=== PATIENT | female | born 1970 | race Caucasian/White ===

== ENCOUNTER → 2016-10-24 | Outpatient (CLI) | payer OTHER ==
--- NOTE | 2016-10-28 06:55 | MM ---
Reason for exam: screening (asymptomatic). Last mammogram was performed 2 years and 2 months ago. History: Family history of breast cancer in paternal aunt at age 50. Physical Findings: A clinical breast exam by your physician is recommended on an annual basis and results should be correlated with mammographic findings. MG Screening Mammo w CAD Bilateral CC and MLO view(s) were taken. Prior study comparison: August 30, 2014, bilateral MG screening mammo w CAD. September 24, 2012, bilateral digital screening mammo w/CAD. The breast tissue is heterogeneously dense. This may lower the sensitivity of mammography. Finding: There are indeterminate calcifications in the lower inner quadrant of the left breast, 5-6cm from the nipple. New finding since August 30, 2014 and September 24, 2012. ASSESSMENT: Incomplete: need additional imaging evaluation, BI-RAD 0 RECOMMENDATION: Special view mammogram of the left breast. [facility] will attempt to contact patient to return for supplemental views.
== END | disposition home or self-care (01) ==
LOC: RADMAMWWP 07:41
PROVIDERS: ATTEND Family Medicine
DX: Z12.31 Encounter for screening mammogram for malignant neoplasm of breast (principal)

== ENCOUNTER → 2016-10-24 | Outpatient (CLI) | payer OTHER ==
--- NOTE | 2016-10-24 09:03 | US ---
EXAMINATION TYPE: US abdomen complete DATE OF EXAM: 10/24/2016 8:07 AM COMPARISON: CT abdomen pelvis September 11, 2009. CLINICAL HISTORY: RLQ Pain R10.31. Cholecystectomy EXAM MEASUREMENTS: Liver Length: 14.5 cm Gallbladder Wall: Surgically absent CBD: 0.7 cm Spleen: 9.4 cm Right Kidney: 11.3 x 3.4 x 4.7 cm Left Kidney: 10.5 x 5.5 x 4.3 cm TECHNOLOGIST IMPRESSION: Pancreas: visualized portions appear wnl, tail obscured by overlying bowel Liver: wnl Gallbladder: Surgically absent CBD: wnl Spleen: wnl Right Kidney: no evidence of hydronephrosis or mass Left Kidney: limited evaluation due to overlying bowel content, no evidence of hydronephrosis Upper IVC: wnl Abd Aorta: wnl The liver is homogenous. The intrahepatic portion of the IVC and proximal abdominal aorta are within normal limits. Gallbladder is surgically absent. Common bile duct is unremarkable. The visualized portions of the pancreas are homogenous. The spleen is unremarkable. Kidneys are symmetric and free of hydronephrosis. No renal lesions are seen on images saved. IMPRESSION: Slightly suboptimal study but no significant finding is seen to account for patient's sym ptoms.
--- NOTE | 2016-10-24 09:15 | US ---
EXAMINATION TYPE: US pelvis complete transvag DATE OF EXAM: 10/24/2016 8:59 AM COMPARISON: CT abdomen and pelvis September 11, 2009. Prior pelvic ultrasound June 08, 2010 CLINICAL HISTORY: RLQ and pelvic Pain R10.31. Ablation 2009 TECHNIQUE: Transvaginal (TV) and Transabdominal (TA) pelvic ultrasound. Date of LMP: unknown EXAM MEASUREMENTS: Uterus: 7.7 x 2.9 x 5.0 cm Endometrial Stripe: 0.4 cm Right Ovary: 2.2 x 1.7 x 1.5 cm Left Ovary: 2.3 x 0.9 x 1.3 cm TECHNOLOGIST IMPRESSION: 1. Uterus: Anteverted, heterogeneous, Nabothian cysts 2. Endometrium: appears wnl 3. Right Ovary: appears wnl, limited evaluation due to overlying bowel 4. Left Ovary: appears wnl, limited evaluation due to overlying bowel 5. Bilateral Adnexa: wnl 6. Posterior cul-de-sac: wnl Uterus is heterogeneous appearance, anteverted in shape, and within normal limits in size. Some nabot hian cysts are scattered throughout the cervix. Endometrium is not suspiciously thickened. No free fl uid is seen in pelvis. Neither ovary is well seen but no suspicious adnexal masses are noted bilaterally. IMPRESSION: No significant finding is seen to account for patient's symptoms of right lower quadrant/ pelvic pain.
== END | disposition home or self-care (01) ==
LOC: RADUSWWP 07:38
PROVIDERS: ATTEND Family Medicine
DX: R10.31 Right lower quadrant pain (principal)
CPT/HCPCS: 76700; 76830; 76856

== ENCOUNTER → 2016-11-01 | Outpatient (CLI) | payer OTHER ==
--- NOTE | 2016-11-01 08:39 | MM ---
Reason for exam: additional evaluation requested from abnormal screening. Last mammogram was performed less than 1 month ago. History: Family history of breast cancer in paternal aunt at age 50. Physical Findings: Nurse did not find any significant physical abnormalities on exam. MG Work Up Mamm w CAD LT CC and MLO view(s) were taken of the left breast. Prior study comparison: October 24, 2016, bilateral MG screening mammo w CAD. August 30, 2014, bilateral MG screening mammo w CAD. Finding: There are grouped/clustered calcifications in the left breast. New finding since October 24, 2016 and August 30, 2014. These results were verbally communicated with the patient and result sheet given to the patient on 11/01/16. ASSESSMENT: Suspicious, BI-RAD 4 RECOMMENDATION: Stereotactic core biopsy of the left breast. Called Dr. Garsia with mammographic findings and has scheduled an appointment for the patient for 12/04/16 at 1:[address] Thomson. Biopsy scheduled for 11/04/16 at 2:20. PRELIMINARY REPORT CALLED AND FAXED TO DR. THOMSON ON 11/01/16 AT 300/TP.
== END | disposition home or self-care (01) ==
LOC: RADMAMWWP 06:58
PROVIDERS: ATTEND Family Medicine
DX: R92.8 Other abnormal and inconclusive findings on diagnostic imaging of breast (principal)

== ENCOUNTER → 2016-11-05 | Day surgery (SDC) | payer OTHER ==
[~2016-11-05] MED LIST: ALPRAZolam 0.25 MG TAB ONE; BACITRACIN OINT 1 EACH PACKET TOPICAL ONE; LIDOCAINE 1% INJ 10MG/ML (20 ML MDV) ONE; SODIUM BICARB 4% 5 ML VIAL (0.48 MEQ/ML) ONE
--- NOTE | 2016-11-05 17:05 | MM ---
EXAMINATION TYPE: MG stereo VAD BX LT DATE OF EXAM: 11/05/2016 3:54 PM COMPARISON: NONE CLINICAL HISTORY: Abnormal breast mammogram with calcifications left breast TECHNIQUE: Stereotactic guided core biopsy of left breast. FINDINGS: The procedure of stereotactic guided core biopsy was explained to the patient. Benefits, alternatives, and risks were discussed. An informed consent was then obtained. The shortness pathway for biopsy was chosen. Shortness pathway was approach. Entire procedure performed by radiologist. A vacuum assisted biopsy gun was used to obtain multiple core samples. The patient tolerated the procedure well without any immediate complication. The patient was kept in the radiology department for short stay after the procedure and then discharged home in stable condition. Targeted calcifications are identified in specimen mammogram. Post biopsy mammogram shows the clip to appear in satisfactory position relative to the targeted area of concern on the preprocedure images. IMPRESSION: SUCCESSFUL, UNCOMPLICATED STEREOTACTIC GUIDED CORE BIOPSY OF AREA OF CONCERN IN THE left BREAST, FULL PATHOLOGY RESULTS TO FOLLOW. Pathology Results: Benign BREAST, LEFT, CORE BIOPSY: FIBROCYSTIC CHANGES INCLUDING CYSTS, FIBROSIS, APOCRINE METAPLASIA, SCLEROSING ADENOSIS, FOCAL MILD USUAL TYPE DUCTAL HYPERPLASIA AND MICROCALCIFICATIONS. Recommendation Follow up mammogram of the left breast in 6 months. MARKO
== END ==
LOC: RADMAMWWP 13:26
PROVIDERS: ATTEND Surgery
DX: N60.12 Diffuse cystic mastopathy of left breast (principal); N60.82 Other benign mammary dysplasias of left breast; N60.22 Fibroadenosis of left breast; N60.92 Unspecified benign mammary dysplasia of left breast; R92.0 Mammographic microcalcification found on diagnostic imaging of breast; R92.8 Other abnormal and inconclusive findings on diagnostic imaging of breast; R92.1 Mammographic calcification found on diagnostic imaging of breast
CPT/HCPCS: 88305; 19081; A4648; J2001

== ENCOUNTER → 2017-06-20 | Outpatient (CLI) | payer OTHER ==
--- NOTE | 2017-06-20 08:53 | MM ---
Reason for exam: follow-up at short interval from prior study. Last mammogram was performed 8 months ago. History: Family history of breast cancer in paternal aunt at age 50. Benign MG stereo VAD BX LT of the left breast, November 05, 2016. Physical Findings: Nurse did not find any significant physical abnormalities on exam. MG Diagnostic Mammo LT w CAD CC and MLO view(s) were taken of the left breast. Prior study comparison: November 01, 2016, left breast MG work up mamm w CAD LT. October 24, 2016, bilateral MG screening mammo w CAD. The breast tissue is heterogeneously dense. This may lower the sensitivity of mammography. Previous mammotome biopsy in the left breast. Previous calcifications removed. No significant new findings when compared with previous films. These results were verbally communicated with the patient and result sheet given to the patient on 06/20/17. ASSESSMENT: Benign, BI-RAD 2 RECOMMENDATION: Return to routine screening mammogram schedule for both breasts. Back on schedule for October 2007.
== END | disposition home or self-care (01) ==
LOC: RADMAMWWP 07:00
PROVIDERS: ATTEND Surgery
DX: R92.8 Other abnormal and inconclusive findings on diagnostic imaging of breast (principal)

== ENCOUNTER 2018-07-27 07:52 | Day surgery (SDC) | payer OTHER ==
[2018-07-23 10:33] VITALS: BMI 23.3
[~2018-07-27 07:52] MED LIST changes: -ALPRAZolam 0.25 MG TAB ONE; -BACITRACIN OINT 1 EACH PACKET TOPICAL ONE; +LACTATED RINGERS 1,000 ML IV SCH; -LIDOCAINE 1% INJ 10MG/ML (20 ML MDV) ONE; -SODIUM BICARB 4% 5 ML VIAL (0.48 MEQ/ML) ONE
[2018-07-27 08:14] VITALS: RESP 16; TEMP 97.4
[2018-07-27 08:16] LABS: Glucose,Whole Blood 91 mg/dL (75-99)
[2018-07-27] MEDS ORDERED: PROPOFOL 10 MG/ML 20 ML VIAL IV ONE (08:16)
--- NOTE | 2018-07-27 09:05 | P.PCN ---
Date of Procedure: 07/27/18 Procedure(s) Performed: Procedure: Total colonoscopy. Preoperative diagnosis: Screening for neoplasia. Postoperative diagnosis: Exam within normal limits. Preparation: HalfLytely prep. Sedation: Was provided by anesthesia. Brief clinical history: The patient is a 48-year-old female who is scheduled for this evaluation was screening for neoplasia age being her risk factor. She knows of no family history of colon cancer. She has no abdominal complaints, bleeding or anemia. She may have had a prior exam several years ago. Procedure: With the patient on her left lateral decubitus position and after informed consent and adequate sedation, the perianal area was inspected and it did not show any fissures or fistulas. There were no masses felt on digital rectal examination. The Olympus CFH 190L video colonoscope was then inserted in the rectum in the usual fashion and advanced to the cecum. The mucosa appeared healthy. No polyps or tumors were seen or any obvious diverticular disease or other pathology. I retroflexed the endoscope in the rectum before the endoscope was withdrawn. The patient tolerated the procedure well. Plan: The patient was reassured. She will follow-up with you as planned and I recommended repeat exam in 10 years.
[2018-07-27 09:33] VITALS: BP 120/82; PULSE 62
== END 2018-07-27 10:12 | disposition home or self-care (01) ==
LOC: ORWHC2ENDO 07:52
DX: Z12.11 Encounter for screening for malignant neoplasm of colon (principal); E11.9 Type 2 diabetes mellitus without complications; M79.7 Fibromyalgia; G89.29 Other chronic pain; K21.9 Gastro-esophageal reflux disease without esophagitis; Z79.84 Long term (current) use of oral hypoglycemic drugs; Z79.891 Long term (current) use of opiate analgesic; Z79.899 Other long term (current) drug therapy; Z88.5 Allergy status to narcotic agent
CPT/HCPCS: 81025; J2704; G0121

== ENCOUNTER → 2020-12-22 | Outpatient (CLI) | payer BC ==
--- NOTE | 2020-12-25 08:58 | MM ---
Reason for exam: screening (asymptomatic). Last mammogram was performed 1 year and 10 months ago. History: Family history of breast cancer in paternal aunt at age 50. Benign MG stereo VAD BX LT of the left breast, November 05, 2016. Physical Findings: A clinical breast exam by your physician is recommended on an annual basis and results should be correlated with mammographic findings. MG 3D Screening Mammo W/Cad Bilateral CC and MLO view(s) were taken. Prior study comparison: February 09, 2019, bilateral MG 3d screening mammo w/cad. June 20, 2017, left breast MG diagnostic mammo LT w CAD. The breast tissue is heterogeneously dense. This may lower the sensitivity of mammography. There are benign appearing round, linear, vascular calcifications bilaterally. Previous mammotome biopsy in the left breast. There is no discrete abnormality. ASSESSMENT: Benign, BI-RAD 2 RECOMMENDATION: Routine screening mammogram of both breasts in 1 year.
== END | disposition home or self-care (01) ==
LOC: RADMAMWWP 12:42
PROVIDERS: ATTEND Family Medicine
DX: Z12.31 Encounter for screening mammogram for malignant neoplasm of breast (principal); Z80.3 Family history of malignant neoplasm of breast
CPT/HCPCS: 77063; 77067

== ENCOUNTER → 2023-01-29 | Outpatient (CLI) | payer BC ==
--- NOTE | 2023-01-30 20:20 | MM ---
Reason for Exam: Screening (asymptomatic). Last mammogram was performed 2 year(s) and 1 month(s) ago. Patient History: Menarche at age 13. First Full-Term at age 17. Postmenopausal. Patient has history of breast feeding. 11/05/2016, Benign Core Biopsy on the left side. Paternal aunt had breast cancer, age 50. Sister had breast cancer, left, age 51. Risk Values: Talya 5 year model risk: 2.4%. NCI Lifetime model risk: 15.8%. Prior Study Comparison: 08/30/2014 Bilateral Screening Mammogram, [facility]. 10/24/2016 Bilateral Screening Mammogram, [facility]. 11/01/2016 Left Diagnostic Mammogram, [facility]. 06/20/2017 Left Diagnostic Mammogram, [facility]. 02/09/2019 Bilateral Screening Mammogram, [facility]. 12/22/2020 Bilateral Screening Mammogram, [facility]. Tissue Density: The breast tissue is heterogeneously dense. This may lower the sensitivity of mammography. Findings: Analyzed By CAD. Microclip left breast from prior biopsy. Benign bilateral vascular calcifications. There is no suspicious group of microcalcifications or new suspicious mass in either breast. Overall Assessment: Benign, BI-RAD 2 Management: Screening Mammogram of both breasts in 1 year. . Patient should continue monthly self-breast exams. A clinical breast exam by your physician is recommended on an annual basis. This exam should not preclude additional follow-up of suspicious palpable abnormalities. Note on Talya scores and lifetime risk: 1. A Talya score greater than 3% is considered moderate risk. If this is the case, consider specialist referral to assess eligibility for a risk reducing agent. 2. If overall lifetime risk for the development of breast cancer is 20% or higher, the patient may qualify for future screening with alternating mammogram and breast MRI. Electronically signed and approved by: Tiffany Saul M.D. Radiologist
== END | disposition home or self-care (01) ==
LOC: RADMAMWWP 08:12
PROVIDERS: ATTEND Family Medicine
DX: Z12.31 Encounter for screening mammogram for malignant neoplasm of breast (principal); Z78.0 Asymptomatic menopausal state; Z80.3 Family history of malignant neoplasm of breast
CPT/HCPCS: 77063; 77067